=== PATIENT | male | born 1995 | race African-American/Black ===

== ENCOUNTER 2017-07-18 07:09 | Emergency (ER) | payer OTHER ==
[2017-07-18 07:29] VITALS: TEMP 98.7; BMI 17.4
--- NOTE | 2017-07-18 08:10 | PDOC ---
History of Present Illness - General Chief Complaint: Pain Stated Complaint: COUGHING BLOOD/PAIN UPPER ABDOMAN/SHORTNESS BREATH Time Seen by Provider: 07/18/17 07:57 History Source: Patient - History of Present Illness Initial Comments: 07/18/17 08:06 21 year old male with no reported PMH presents to our ED this morning c/o cough. Notes a 3-4 day h/o cough, however this morning he noted some bright red spots of blood prompting his visit to the ED. Endorses subjective fever, GRANT and "aching" chest pain denies nausea/vomiting, diarrhea/constipation. Also notes some intermittent shortness of breath with exertion. 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 NKDA Surgical: denies Social: denies nicotine, weekly marijuana, denies alcohol Past History - Past Medical History Allergies/Adverse Reactions: Allergies Allergy/AdvReac Type Severity Reaction Status Date / Time No Known Allergies Allergy Verified 07/18/17 07:25 Home Medications: Ambulatory Orders Azithromycin [Zithromax -] 500 mg PO DAILY 3 Days #3 tablet 07/18/17 COPD: No - Immunization History Immunization Up to Date: Yes - Suicide/Smoking/Psychosocial Hx Smoking Status: No Smoking History: Never smoked Have you smoked in the past 12 months: No Number of Cigarettes Smoked Daily: 0 Information on smoking cessation initiated: No Hx Alcohol Use: No Drug/Substance Use Hx: No Substance Use Type: None Review of Systems - Review of Systems Constitutional: Yes: Fever. No: Chills HEENTM: No: Recent change in vision Respiratory: Yes: Cough, Shortness of Breath, Hemoptysis Cardiac (ROS): No: Chest Pain, Lightheadedness, Palpitations, Syncope ABD/GI: No: Constipated, Diarrhea, Nausea, Vomiting : No: Burning, Dysuria *Physical Exam - Vital Signs Last Vital Signs Temp Pulse Resp BP Pulse Ox 98.7 F 86 18 111/62 98 07/18/17 07:26 07/18/17 07:26 07/18/17 07:26 07/18/17 07:26 07/18/17 07:26 - Physical Exam General Appearance: Yes: Nourished, Thin HEENT: positive: EOMI, DARIEL. negative: Pharyngeal Erythema, Tonsillar Exudate, Tonsillar Erythema Neck: positive: Trachea midline, Supple Respiratory/Chest: positive: Lungs Clear Cardiovascular: positive: S1, S2. negative: Edema, JVD Vascular Pulses: Dorsalis-Pedis (R): 2+, Doralis-Pedis (L): 2+ Gastrointestinal/Abdominal: positive: Normal Bowel Sounds, Soft Musculoskeletal: negative: CVA Tenderness (R), CVA Tenderness (L) Integumentary: positive: Normal Color, Dry, Warm Neurologic: positive: Fully Oriented, Alert ED Treatment Course - LABORATORY CBC & Chemistry Diagram: 07/18/17 08:50 07/18/17 08:50 Medical Decision Making - Medical Decision Making 07/18/17 08:38 21 year old well appearing male presents with cough and subjective fever and GRANT. Clinical suspicion for viral URI, Bronchitis, PNA. Low clinical suspicion for HOCM like picture as patient is active in physical activity without GRANT. 07/18/17 09:01 ECG shows NSR HR 61, no QT prolongation, no dagger Q waves (HOCM) no deviations , no KAMINI/STD/TWI - non ischemic ECG. CXR shows no cardiomegaly, no consolidation/infiltrate. Will discharge patient home with Z-pack and PMD follow-up. Patient and patient' s mother @ bedside counseled on return precautions and discharged home. At the time of discharge patient was ambulatory, improved and understood his discharge care. I discussed the physical exam findings, ancillary test results and final diagnoses with the patient. I answered all of the patient's questions. The patient was satisfied with the care received and felt comfortable with the discharge plan and treatment plan. The patient will return to the Emergency Department with any new, persistent or worsening symptoms. *DC/Admit/Observation/Transfer Diagnosis at time of Disposition: Cough - Discharge Dispostion Disposition: HOME Condition at time of disposition: Good Admit: No - Prescriptions Prescriptions: Azithromycin [Zithromax -] 500 mg PO DAILY 3 Days #3 tablet - Referrals Referrals: Armida Hale MD [Primary Care Provider] - - Patient Instructions Printed Discharge Instructions: How to Avoid a Cold or Flu Additional Instructions: A prescription has been called to your pharmacy. Please take the entire antibiotic course. Follow up with your primary care doctor in the next 2-3 days. Return to the Emergency Department for any new/worsening/concerning symptoms. - Post Discharge Activity Forms/Work/School Notes: Back to Work
--- NOTE | 2017-07-18 08:41 | PDOC ---
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 The patient was starting to developing greenish cough. No fevers, chills. States has been coughing frequently, and now has recently has had mild blood tinged cough. No TB risk factors. No travel. Does not know of any sick contacts. Reported some substernal chest discomfort with cough. - Physicial Exam PE: 07/18/17 09:18 GENERAL: Awake, alert, and fully oriented, in no acute distress. HEAD: No signs of trauma EYES: PERRLA, EOMI, sclera anicteric, conjunctiva clear ENT: Auricles normal inspection, hearing grossly normal, nares patent NECK: Normal ROM, supple LUNGS: Breath sounds equal, clear to auscultation bilaterally. No wheezes, and no crackles HEART: Regular rate and rhythm, normal S1 and S2, no murmurs, rubs or gallops ABDOMEN: Soft, nontender. No guarding, no rebound. No masses EXTREMITIES: Normal range of motion, no edema. No clubbing or cyanosis. No cords, erythema, or tenderness NEUROLOGICAL: Cranial nerves II through XII grossly intact. Normal speech SKIN: Warm, Dry, normal turgor, no rashes or lesions noted. - Medical Decision Making 07/18/17 09:18 Vital Signs Temp Pulse Resp BP Pulse Ox 98.7 F 86 18 111/62 98 07/18/17 07:26 07/18/17 07:26 07/18/17 07:26 07/18/17 07:26 07/18/17 07:26 21 year old well appearing gentle man p/w cough. I suspect the patient likely has bronchitis. No TB risk factors. Chest xray reviewed by me, pending official radiology read. No infiltrates. ECG reassuring. Will d/c with azithromycin to treat as bronchitis. Heart Score/ECG Review #1 ECG reviewed & interpreted by me at: 09:00 07/18/17 09:16 NSR 61 with short AK, J point elevations V4-V5, no std/tanisha, normal axis, normal intervals, QTC 360 msec
[2017-07-18 09:06] LABS: BASO % 0.5 % (0-2.0); EOS % 1.1 % (0-4.5); HEMATOCRIT 42.3 % (35.4-49); HEMOGLOBIN 14.6 GM/dL (11.7-16.9); LYMPH % 29.1 % (8-40); MCH 30.5 pg (25.7-33.7); MCHC 34.6 g/dl (32.0-35.9); MEAN CELL VOLUME 88.1 fl (80-96); MONO % 14.7 % (3.8-10.2); NEUT % 54.6 % (42.8-82.8); PLATELET COUNT 202 K/MM3 (134-434); RDW 12.7 % (11.9-15.9); WHITE BLOOD COUNT 4.9 K/mm3 (4.0-10.0)
[2017-07-18 09:35] LABS: ALK PHOS 67 U/L (45-117); ANION GAP 2 (8-16); BILIRUBIN,TOTAL 0.5 mg/dL (0.2-1.0); BLOOD UREA NITROGEN 10 mg/dL (7-18); CALCIUM 8.8 mg/dL (8.5-10.1); CHLORIDE 106 mmol/L (98-107); CO2 31 mmol/L (21-32); GLUCOSE,RANDOM 88 mg/dL (74-106); POTASSIUM 4.6 mmol/L (3.5-5.1); SGOT/AST 16 U/L (15-37); SGPT/ALT 12 U/L (12-78); SODIUM 139 mmol/L (136-145); TOT PROT 7.4 g/dl (6.4-8.2)
[2017-07-18 10:13] VITALS: BP 118/70; PULSE 72
--- NOTE | 2017-07-19 11:34 | EKG ---
Test Reason : Blood Pressure : / mmHG Vent. Rate : 061 BPM Atrial Rate : 061 BPM P-R Int : 106 ms QRS Dur : 088 ms QT Int : 358 ms P-R-T Axes : 069 078 070 degrees QTc Int : 360 ms SINUS RHYTHM WITH SINUS ARRHYTHMIA WITH SHORT ID EARLY REPOLARIZATION OTHERWISE NORMAL ECG NO PREVIOUS ECGS AVAILABLE Confirmed by FATUMA MARQUES MD ([id number]) on 07/19/2017 11:34:10 AM Referred By: Confirmed By:FATUMA MARQUES MD
== END 2017-07-18 10:13 | disposition home or self-care (01) ==
LOC: JER 07:09
DX: R05 Cough (principal)
CPT/HCPCS: 36415; 71046-TC-FY; 80053; 85025; 93005; 93010; 99284-25

== ENCOUNTER 2018-03-22 22:26 | Emergency (ER) | payer OTHER ==
--- NOTE | 2018-03-22 22:34 | PDOC ---
History of Present Illness - History of Present Illness Initial Comments: The patient is a 22 year old male, with no significant past medical history, who presents to the emergency department with left ankle pain and swelling around 9 pm tonight. Patient states that he stepped the wrong way and inverted his left ankle and states that it popped. Patient states he did not take any medication for the pain. He denies any recent fevers, chills, headache or dizziness. He denies any recent nausea, vomit, diarrhea or constipation. He denies any recent chest pain or shortness of breath. He denies any recent dysuria, frequency, urgency or hematuria. Allergies: NKA Past surgical history: None reported. Primary Care Physician: Armida Hale 03/22/18 22:44 <Lilia Troy - Last Filed: 03/22/18 22:44> <Dale Jeff - Last Filed: 03/23/18 02:39> - General Chief Complaint: Injury Stated Complaint: LT ANKLE SPRAIN Time Seen by Provider: 03/22/18 22:32 Past History <Lilia Troy - Last Filed: 03/22/18 22:44> - Past Medical History COPD: No - Immunization History Immunization Up to Date: Yes - Suicide/Smoking/Psychosocial Hx Smoking Status: No Smoking History: Never smoked Have you smoked in the past 12 months: No Number of Cigarettes Smoked Daily: 0 Hx Alcohol Use: No Drug/Substance Use Hx: No Substance Use Type: None <Dale Jeff - Last Filed: 03/23/18 02:39> - Past Medical History Allergies/Adverse Reactions: Allergies Allergy/AdvReac Type Severity Reaction Status Date / Time No Known Allergies Allergy Verified 07/18/17 07:25 Home Medications: Ambulatory Orders NK [No Known Home Medication] 03/22/18 Review of Systems - Review of Systems Comments:: Constitutional: no recent illness; no fever ENT: no sore throat Cardiovascular: no palpitations; no chest pain Pulmonary: no cough; no trouble breathing Gastrointestinal: No nausea; no vomiting; no diarrhea Genitourinary: No urinary problems; no hematuria Skin: No rash Lymph system: No swollen glands Musculoskeletal: +left ankle pain and swelling. Neurological: No weakness; No numbness; No Headache; no vertigo; no lightheadedness <Lilia Troy - Last Filed: 03/22/18 22:44> *Physical Exam - Physical Exam Comments: Vitals: Triage Vital signs reviewed General Appearance: no acute distress, well nourished well developed Extremities: Left ankle: swelling and tenderness over the lateral malleolus. Full range of motion to all extremities, no cyanosis or clubbing. Skin: Warm and dry, no rashes or lesions, no rash, no petechiae Neuro: AOX3; Cranial Nerves 2-12 grossly intact, Strength intact to all extremities, Sensation intact to all extremities. Psych: Normal mood, normal affect <Lilia Troy - Last Filed: 03/22/18 22:44> Procedures - Splinting Splint Location: Left: Ankle Pre-Proc Neuro Vasc Exam: normal Hand-Made Type: orthoglass Post-Proc Neuro Vasc Exam: normal <Dale Jeff - Last Filed: 03/23/18 02:39> Medical Decision Making - Medical Decision Making 03/22/18 23:08 Swelling to the lateral malleolus we'll x-ray patient did not want any pain medication On x-ray there is a very subtle lucency right at the tip of the distal fibula we 'll place in a U-shaped splint provided with crutches and have patient follow up with orthopedics Findings, the need for follow-up and strict return instructions discussed with patient. <Dale Jeff - Last Filed: 03/23/18 02:39> *DC/Admit/Observation/Transfer - Attestations Scribe Attestion: 03/22/18 22:43 Documentation prepared by Lilia Troy, acting as medical care administrator for Dale Jeff MD. <Lilia Troy - Last Filed: 03/22/18 22:44> - Discharge Dispostion Decision to Admit order: No <Dale Jeff - Last Filed: 03/23/18 02:39> Diagnosis at time of Disposition: Ankle fracture Qualifiers: Encounter type: initial encounter Fracture type: closed Laterality: left Qualified Code(s): S82.892A - Other fracture of left lower leg, initial encounter for closed fracture - Discharge Dispostion Disposition: HOME Condition at time of disposition: Stable - Referrals Referrals: Armida Hale MD [Primary Care Provider] - Jaylen Hernandez MD [Staff Physician] - - Patient Instructions Printed Discharge Instructions: How to Use Crutches, Ankle Fracture, How to Take Care of Your Splint Additional Instructions: Keep splint clean and dry. Do not put any weight on ankle. Use crutches at all times while ambulating. Ice affected ankle 20 minutes on 20 minutes off. Take [id number] Motrin as needed for pain. Follow-up with Dr. Hernandez orthopedics this week. Return to the emergency department for any concerns. - Post Discharge Activity Forms/Work/School Notes: Back to Work, Back to School
[2018-03-22 22:42] VITALS: BP 113/71; PULSE 80; TEMP 98.1; BMI 19.0
== END 2018-03-22 23:25 | disposition home or self-care (01) ==
LOC: FER 22:26
PROC: 2W3RX1Z Immobilization of Left Lower Leg using Splint (ICD-10-PCS; principal; 2018-03-22)
DX: S82.892A Other fracture of left lower leg, initial encounter for closed fracture (principal); X58.XXXA Exposure to other specified factors, initial encounter; Y93.89 Activity, other specified; Y92.89 Other specified places as the place of occurrence of the external cause
CPT/HCPCS: 73610-TC-LT-FY; 73630-TC-LT; 99282-25

== ENCOUNTER 2018-10-05 07:52 | Emergency (ER) | payer OTHER ==
[2018-10-05 08:00] VITALS: BP 105/57; PULSE 89; BMI 19.8
[2018-10-05] MEDS ORDERED: LIDOCAINE VISCOUS 2% ORAL/TOP 20 ML UNIT-DOSE CUP MM ONE (08:10)
[2018-10-05] MEDS ORDERED: IBUPROFEN 600 MG TABLET (FP) PO ONE ×2 (08:10→08:13)
[2018-10-05] MEDS ORDERED: LIDOCAINE VISCOUS 2% ORAL/TOP 20 ML UNIT-DOSE CUP ONE (08:16)
--- NOTE | 2018-10-05 08:45 | PDOC ---
History of Present Illness - General Chief Complaint: Cold Symptoms Stated Complaint: CHEST PAIN Time Seen by Provider: 10/05/18 08:04 History Source: Patient Exam Limitations: No Limitations - History of Present Illness Initial Comments: 10/05/18 08:20 22 y/o male presents to the ED with complaints of sore throat since yesterday now accompanied with intermittent nausea secondary to gagging, fever, chills and mild generalized myalgia. Patient states took nothing for the above and decided come to the ER today. Patient denies recent travel recent illness or recent sick contacts. Patient also denies medical history Timing/Duration: getting worse Severity: moderate Associated Symptoms: reports: fever/chills, nausea/vomiting (nausea) Past History - Travel Traveled outside of the country in the last 30 days: No Close contact w/someone who was outside of country & ill: No - Past Medical History Allergies/Adverse Reactions: Allergies Allergy/AdvReac Type Severity Reaction Status Date / Time No Known Allergies Allergy Verified 07/18/17 07:25 Home Medications: Ambulatory Orders NK [No Known Home Medication] 03/22/18 COPD: No - Immunization History Immunization Up to Date: Yes - Suicide/Smoking/Psychosocial Hx Smoking Status: No Smoking History: Never smoked Have you smoked in the past 12 months: No Number of Cigarettes Smoked Daily: 0 Hx Alcohol Use: No Drug/Substance Use Hx: No Substance Use Type: None Patient Lives Alone: No Lives with/in: parents Review of Systems - Review of Systems Able to Perform ROS?: No Constitutional: Yes: Weakness HEENTM: Yes: Symptoms Reported, Throat Pain, Difficulty Swallowing Respiratory: No: Symptoms reported Cardiac (ROS): No: Symptoms Reported ABD/GI: Yes: Poor Appetite, Poor Fluid Intake : No: Symptoms Reported Musculoskeletal: Yes: Muscle Pain Integumentary: No: Symptoms Reported Neurological: No: Symptoms reported Hematologic/Lymphatic: No: Symptoms Reported *Physical Exam - Vital Signs Last Vital Signs Temp Pulse Resp BP Pulse Ox 102.3 F H 89 20 105/57 L 98 10/05/18 07:57 10/05/18 07:57 10/05/18 07:57 10/05/18 07:57 10/05/18 07:57 - Physical Exam General Appearance: Yes: Nourished, Appropriately Dressed. No: Apparent Distress HEENT: positive: Pharynx Normal (Noted multiple herpangina to posterior soft palate and pharynx. Patient also noted with erythema to area. Uvula midline 2+ tonsils bilaterally) Neck: positive: Supple. negative: Lymphadenopathy (R), Lymphadenopathy (L) Respiratory/Chest: positive: Lungs Clear, Normal Breath Sounds. negative: Respiratory Distress, Accessory Muscle Use Cardiovascular: positive: Regular Rhythm, Regular Rate. negative: Murmur Gastrointestinal/Abdominal: positive: Soft. negative: Tenderness Integumentary: positive: Normal Color, Warm, Moist Neurologic: positive: Motor Strength 5/5 (ambulatory) ED Treatment Course - Medications Given in the ED: ED Medications Discontinued Medications Generic Name Dose Route Start Last Admin Trade Name Freq PRN Reason Stop Dose Admin Ibuprofen 600 mg 10/05/18 08:10 10/05/18 08:19 Motrin - PO 10/05/18 08:11 600 mg ONCE ONE Administration Lidocaine HCl 15 ml 10/05/18 08:10 10/05/18 08:19 Xylocaine 2% Viscous Oral - MM 10/05/18 08:11 15 ml ONCE ONE Administration Medical Decision Making - Medical Decision Making 10/05/18 08:07 Complaint: Sore throat now with fever and myalgia and nausea Exam: febrile, noted multiple herpangina to posterior pharynx along with erythema. Noted some bleeding after swabbing the throat for culture. Plan: Motrin rapid strep and lidocaine for symptomatic relief. 10/05/18 08:49 Laboratory Tests 10/05/18 08:00 Group A Strep Rapid Negative Patient will have repeat temperature taken and sent home with Magic mouthwash along with supportive care instructions *DC/Admit/Observation/Transfer Diagnosis at time of Disposition: Coxsackie virus infection - Discharge Dispostion Disposition: HOME Condition at time of disposition: Improved - Referrals Referrals: Armida Hale MD [Primary Care Provider] - - Patient Instructions Printed Discharge Instructions: Hand, Foot, and Mouth Disease Additional Instructions: Please take Motrin 600 mg every 8 hours for adequate fever control along with pain control. Eat soft non-abrasive foods and drink plenty of fluids. Use Magic mouthwash also to alleviate your discomfort. If symptoms do not improve please return to the ED or follow-up with your primary care physician - Post Discharge Activity
[2018-10-05] MEDS ORDERED: ACETAMINOPHEN 500 MG TABLET (FP) PO ONE (08:57)
[2018-10-05] MEDS ORDERED: ACETAMINOPHEN 325 MG TABLET (FP) ONE (08:58)
[2018-10-05 09:32] VITALS: TEMP 101
== END 2018-10-05 09:31 | disposition home or self-care (01) ==
LOC: JER 07:52
DX: B08.5 Enteroviral vesicular pharyngitis (principal); B97.11 Coxsackievirus as the cause of diseases classified elsewhere
CPT/HCPCS: 87070; 87880; 99282-25

== ENCOUNTER 2018-10-06 22:17 | Emergency (ER) | payer OTHER ==
[2018-10-06 22:26] VITALS: BMI 19.8
--- NOTE | 2018-10-06 23:13 | PDOC ---
History of Present Illness - General Chief Complaint: Sore Throat Stated Complaint: TROUBLE BREATHING Time Seen by Provider: 10/06/18 22:38 History Source: Patient - History of Present Illness Initial Comments: 10/06/18 23:20 22 year old male with sore throat and nausea x 4 days fever yesterday no fever today. patient unable to drink due to throat pain. denies fever today. took ibuprofen at 7 pm. seen in this ED 3 days ago rapid strep negative. No pmhx 10/06/18 23:25 Past History - Past Medical History Allergies/Adverse Reactions: Allergies Allergy/AdvReac Type Severity Reaction Status Date / Time No Known Allergies Allergy Verified 10/06/18 22:21 Home Medications: Ambulatory Orders Ibuprofen [Motrin -] 600 mg PO TID PRN #21 tablet 10/05/18 Mag Hydrox/Alh/Smc/Dpha/Lido [Magic Mouthwash *Sjr Formula* -] 10 ml MM Q6HPO PRN #1 bottle 10/05/18 COPD: No - Immunization History Immunization Up to Date: Yes - Suicide/Smoking/Psychosocial Hx Smoking Status: No Smoking History: Unknown if ever smoked Have you smoked in the past 12 months: No Number of Cigarettes Smoked Daily: 0 Information on smoking cessation initiated: No Hx Alcohol Use: No Drug/Substance Use Hx: No Substance Use Type: None Review of Systems - Review of Systems Able to Perform ROS?: Yes Is the patient limited [place] proficient: No Constitutional: Yes: Fever HEENTM: Yes: Throat Pain, Difficulty Swallowing Cardiac (ROS): No: Symptoms Reported, See HPI, Chest Pain, Edema, Irregular Heart Rate, Lightheadedness, Palpitations, Syncope, Chest Tightness, Other ABD/GI: No: Symptoms Reported, See HPI, Abdominal Distended, Abd. Pain w/ defecation, Blood Streaked Bowels, Constipated, Diarrhea, Difficulty Swallowing , Nausea, Poor Appetite, Poor Fluid Intake, Rectal Bleeding, Vomiting, Indigestion, Abdominal cramping, Tarry Stools, Other *Physical Exam - Vital Signs Last Vital Signs Temp Pulse Resp BP Pulse Ox 98.2 F 92 H 16 110/85 97 10/06/18 22:19 10/06/18 22:19 10/06/18 22:19 10/06/18 22:19 07/16/19 22:19 - Physical Exam General Appearance: Yes: Appropriately Dressed HEENT: positive: Pharyngeal Erythema (, tonsillar erythema and swelling no kissing tonsils. ) Neck: negative: Lymphadenopathy (R), Lymphadenopathy (L) Respiratory/Chest: positive: Lungs Clear, Normal Breath Sounds Cardiovascular: positive: Regular Rhythm, Regular Rate Gastrointestinal/Abdominal: positive: Normal Bowel Sounds, Soft Extremity: positive: Normal Capillary Refill, Normal Inspection, Normal Range of Motion Integumentary: positive: Normal Color, Dry, Warm Neurologic: positive: Fully Oriented, Alert, Normal Mood/Affect ED Treatment Course - LABORATORY CBC & Chemistry Diagram: 10/06/18 23:30 10/06/18 23:30 Medical Decision Making - Medical Decision Making viral pharyngitis P: IVF cbc bmp [facility] 10/07/18 02:03 tolerated PO water. and juice. patient is feeling better. will d.c home *DC/Admit/Observation/Transfer Diagnosis at time of Disposition: Viral pharyngitis - Discharge Dispostion Disposition: HOME - Referrals Referrals: Kentrell Salmon MD [Primary Care Provider] - - Patient Instructions Printed Discharge Instructions: Viral Pharyngitis Additional Instructions: drink plenty of fluids gargle with warm salty water take ibuprofen every 6 hours as needed for pain follow up with your doctor as soon as possible - Post Discharge Activity Forms/Work/School Notes: Back to Work
[2018-10-06] MEDS ORDERED: DEXAMETHASONE SOD PHOSPHATE 10 MG/1 ML VIAL IM ONE (23:17)
[2018-10-06] MEDS ORDERED: ONDANSETRON 4 MG/2 ML VIAL IVPB ONE (23:17)
[2018-10-06] MEDS ORDERED: SODIUM CHLORIDE 1,000 ML IV STA (23:18)
[2018-10-06] MEDS ORDERED: KETOROLAC TROMETHAMINE 30 MG/1 ML VIAL IVPUSH ONE (23:22)
[2018-10-06 23:47] LABS: BASO % 0.2 % (0-2.0); EOS % 0.1 % (0-4.5); HEMATOCRIT 39.2 % (35.4-49); HEMOGLOBIN 13.2 GM/dL (11.7-16.9); LYMPH % 6.6 % (8-40); MCH 30.4 pg (25.7-33.7); MCHC 33.6 g/dl (32.0-35.9); MEAN CELL VOLUME 90.2 fl (80-96); MEAN PLT VOLUME 8.6 fl (7.5-11.1); MONO % 9.2 % (3.8-10.2); NEUT % 83.9 % (42.8-82.8); PLATELET COUNT 191 K/MM3 (134-434); RBC 4.35 M/mm3 (4.00-5.60); RDW 12.9 % (11.9-15.9); WHITE BLOOD COUNT 11.3 K/mm3 (4.0-10.0)
[2018-10-06] MEDS ORDERED: KETOROLAC TROMETHAMINE 30 MG/1 ML VIAL ONE (23:50)
[2018-10-06] MEDS ORDERED: DEXAMETHASONE SOD PHOSPHATE 10 MG/1 ML VIAL ONE (23:50)
[2018-10-06] MEDS ORDERED: ONDANSETRON 4 MG/2 ML VIAL ONE (23:51)
[2018-10-07 00:09] LABS: BLOOD UREA NITROGEN 10.1 mg/dL (7-18); CALCIUM 8.6 mg/dL (8.5-10.1); CREATININE 0.9 mg/dL (0.55-1.3); POTASSIUM 4.2 mmol/L (3.5-5.1)
[2018-10-07 02:41] VITALS: BP 105/61; PULSE 75; TEMP 99
== END 2018-10-07 02:43 | disposition home or self-care (01) ==
LOC: JER 22:17
PROC: 3E0337Z Introduction of Electrolytic and Water Balance Substance into Peripheral Vein, Percutaneous Approach (ICD-10-PCS; principal; 2018-10-06)
PROC: 3E033GC Introduction of Other Therapeutic Substance into Peripheral Vein, Percutaneous Approach (ICD-10-PCS; 2018-10-06)
PROC: 3E0333Z Introduction of Anti-inflammatory into Peripheral Vein, Percutaneous Approach (ICD-10-PCS; 2018-10-06)
PROC: 3E0233Z Introduction of Anti-inflammatory into Muscle, Percutaneous Approach (ICD-10-PCS; 2018-10-06)
DX: J02.9 Acute pharyngitis, unspecified (principal); B97.89 Other viral agents as the cause of diseases classified elsewhere
CPT/HCPCS: 36415; 80048; 85025; 99284-25; J1100; J7030

== ENCOUNTER 2018-12-31 14:39 | Emergency (ER) | payer OTHER ==
[2018-12-31 14:46] VITALS: BP 125/80; PULSE 74; TEMP 98.2; BMI 19.0
--- NOTE | 2018-12-31 16:01 | PDOC ---
History of Present Illness - General Chief Complaint: Syncope/Near Syncope Stated Complaint: I WOKE UP ON THE FLOOR Time Seen by Provider: 12/31/18 16:00 - History of Present Illness Initial Comments: 12/31/18 17:25 Chief complaint: Fainting HPI: Patient was at work today, sweeping the floor, felt flushed and tingly all over, possible momentary loss of consciousness. No confusion or other symptoms upon awakening. No sign of injury Review of systems: reviewed and noncontributory Past medical history: No significant medical or surgical problems past or present, no hospitalizations. 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 Patient feels fine now on has no symptoms whatsoever. Afebrile, vital signs normal Head atraumatic. No contusions, hematomas, abrasions, or lacerations. PERRLA, 4 mm, and a benign with sharp disc margins, good central venous pulsations, no hemorrhages or exudates ENT clear Neck supple without bruit mass or nodes. No point tenderness or deformity. Full range of motion without pain Chest clear to P&A, full breath sounds bilaterally. No chest wall or rib cage tenderness or deformity CV S1-S2 normal without murmur rub or gallop pulses full and symmetric no JVD or edema no bruits Abdomen nondistended, bowel sounds normal. Soft without mass tenderness organomegaly Extremities no CCE. No visible or palpable signs of trauma Skin clear, no rash, adequate turgor and wet mucous membranes Neurological C2 to 12 intact. Strength: Symmetric. No focal sensorimotor deficits. Gait stable and unimpaired. Impression: This is most likely vasovagal syncope. EKG normal sinus rhythm, normal EKG Plan: Reassure. Return to ER if further symptoms. Neurologist referral if further symptoms. Fully ambulatory and in no pain or other distress at discharge, asymptomatic, to follow-up as directed Past History - Past Medical History Allergies/Adverse Reactions: Allergies Allergy/AdvReac Type Severity Reaction Status Date / Time No Known Allergies Allergy Verified 12/31/18 13:10 Home Medications: Ambulatory Orders Ibuprofen [Motrin -] 600 mg PO TID PRN #21 tablet 10/05/18 Mag Hydrox/Alh/Smc/Dpha/Lido [Magic Mouthwash *Sjr Formula* -] 10 ml MM Q6HPO PRN #1 bottle 10/05/18 COPD: No - Immunization History Immunization Up to Date: Yes - Psycho Social/Smoking Cessation Hx Smoking Status: No Smoking History: Current every day smoker Have you smoked in the past 12 months: No Number of Cigarettes Smoked Daily: 5 Information on smoking cessation initiated: Yes Hx Alcohol Use: Yes (RARE) Drug/Substance Use Hx: Yes (MARIJ WEEKENDS) Substance Use Type: None *Physical Exam - Vital Signs Last Vital Signs Temp Pulse Resp BP Pulse Ox 98.2 F 74 16 125/80 100 12/31/18 14:40 12/31/18 14:40 12/31/18 14:40 12/31/18 14:40 12/31/18 14:40 Discharge - Discharge Information Problems reviewed: Yes Clinical Impression/Diagnosis: Vasovagal near syncope Condition: Stable - Admission No - Follow up/Referral Referrals: Deon Wiley DO [Staff Physician] - - Patient Discharge Instructions Patient Printed Discharge Instructions: DI for Syncope in Adults (Fainting) - Post Discharge Activity Work/Back to School Note: Back to Work
--- NOTE | 2019-01-01 14:19 | EKG ---
Test Reason : Blood Pressure : / mmHG Vent. Rate : 063 BPM Atrial Rate : 063 BPM P-R Int : 120 ms QRS Dur : 080 ms QT Int : 384 ms P-R-T Axes : 090 078 076 degrees QTc Int : 392 ms NORMAL SINUS RHYTHM ST ELEVATION, CONSIDER EARLY REPOLARIZATION, PERICARDITIS, OR INJURY ABNORMAL ECG WHEN COMPARED WITH ECG OF 18-JUL-2017 08:59, NO SIGNIFICANT CHANGE WAS FOUND Confirmed by JAKY GUTIÉRREZ MD ([id number]) on 01/01/2019 2:18:38 PM Referred By: DR ESPARZA Confirmed By:JAKY GUTIÉRREZ MD
== END 2018-12-31 16:40 | disposition home or self-care (01) ==
LOC: FER 14:39
DX: R55 Syncope and collapse (principal)
CPT/HCPCS: 93005; 99282-25

== ENCOUNTER 2020-09-14 23:19 | Emergency (ER) | payer OTHER ==
[2020-09-14 23:26] VITALS: BP 118/76; PULSE 84; TEMP 98; BMI 19.1
[2020-09-14] MEDS ORDERED: PENICILLIN G BENZATHINE 2,400,000 UNIT/4 ML PFS IM ONE (23:54)
[2020-09-14] MEDS ORDERED: AZITHROMYCIN 500 MG TABLET PO ONE (23:55)
[2020-09-14] MEDS ORDERED: AZITHROMYCIN 500 MG TABLET ONE (23:59)
[2020-09-15] MEDS ORDERED: PENICILLIN G BENZATHINE 1,200,000 UNIT/2 ML PFS IM ONE ×2 (00:02)
== END 2020-09-15 00:15 | disposition home or self-care (01) ==
LOC: FER 23:19
DX: Z20.2 Contact with and (suspected) exposure to infections with a predominantly sexual mode of transmission (principal)
CPT/HCPCS: 36415; 81003; 86780; 87491; 87591; 99284-25

== ENCOUNTER 2020-12-27 17:36 | Emergency (ER) | payer OTHER ==
[2020-12-27 17:41] VITALS: BP 119/78; PULSE 78; TEMP 99.9; BMI 17.9
[2020-12-27] MEDS ORDERED: KETOROLAC TROMETHAMINE 60 MG/2 ML VIAL IM ONE (18:34)
[2020-12-27] MEDS ORDERED: KETOROLAC TROMETHAMINE 30 MG/1 ML VIAL ONE (18:35)
[2020-12-27 19:40] LABS: URINE APPEARANCE CLEAR; URINE BILIRUBIN NEGATIVE (NEGATIVE); URINE COLOR YELLOW; URINE GLUCOSE (UA) NEGATIVE (NEGATIVE); URINE KETONE TRACE (NEGATIVE); URINE LEUK ESTERASE NEGATIVE (NEGATIVE); URINE NITRITE NEGATIVE (NEGATIVE); URINE PROTEIN NEGATIVE (NEGATIVE)
== END 2020-12-27 20:07 | disposition left against medical advice (07) ==
LOC: MERGE 17:36 → JER 17:36
PROC: 3E0233Z Introduction of Anti-inflammatory into Muscle, Percutaneous Approach (ICD-10-PCS; principal; 2020-12-27)
DX: S90.32XA Contusion of left foot, initial encounter (principal); S30.1XXA Contusion of abdominal wall, initial encounter; V23.4XXA Motorcycle driver injured in collision with car, pick-up truck or van in traffic accident, initial encounter
CPT/HCPCS: 72170-TC-FY; 73502-TC-LT-FY; 73552-TC-LT-FY; 73564-TC-LT-FY; 73610-TC-LT-FY; 73630-TC-LT; 76604; 76705-TC; 81003; 93308; 99285-25

== ENCOUNTER 2021-01-09 09:48 | Emergency (ER) | payer OTHER ==
[2021-01-09] MEDS ORDERED: IBUPROFEN 400 MG TABLET (FP) PO ONE ×2 (09:59→10:07)
[2021-01-09] MEDS ORDERED: ACETAMINOPHEN 325 MG TABLET (FP) PO ONE (09:59)
[2021-01-09] MEDS ORDERED: ACETAMINOPHEN 325 MG TABLET (FP) ONE (10:07)
[2021-01-09 10:30] VITALS: BP 120/80; PULSE 70; TEMP 98.9; BMI 17.9
== END 2021-01-09 10:44 | disposition home or self-care (01) ==
LOC: FER 09:48
DX: S39.012A Strain of muscle, fascia and tendon of lower back, initial encounter (principal); V49.40XA Driver injured in collision with unspecified motor vehicles in traffic accident, initial encounter
CPT/HCPCS: 99283-25

== ENCOUNTER 2021-10-31 00:10 | Emergency (ER) | payer OTHER ==
[2021-10-31] MEDS ORDERED: ACETAMINOPHEN 325 MG TABLET (FP) PO ONE (00:14)
[2021-10-31 00:20] VITALS: BP 108/69; PULSE 77; RESP 16; TEMP 99; BMI 19.3
[2021-10-31] MEDS ORDERED: ACETAMINOPHEN 325 MG TABLET (FP) ONE (00:21)
== END 2021-10-31 00:31 | disposition home or self-care (01) ==
LOC: FER 00:10
DX: M79.10 Myalgia, unspecified site (principal)
CPT/HCPCS: 99283-25; C9803-CS; U0003; U0005

== ENCOUNTER 2022-11-22 16:22 | Emergency (ER) | payer OTHER ==
[2022-11-22 16:45] VITALS: BP 100/58; PULSE 108; RESP 15; BMI 21.6
[2022-11-22] MEDS ORDERED: IBUPROFEN 400 MG TABLET (FP) PO ONE ×2 (16:51→16:57)
[2022-11-22 18:14] VITALS: TEMP 99.3
== END 2022-11-22 18:38 | disposition home or self-care (01) ==
LOC: FER 16:22
DX: R50.9 Fever, unspecified (principal); J02.9 Acute pharyngitis, unspecified; M79.10 Myalgia, unspecified site; U07.1 COVID-19
CPT/HCPCS: 0241U-QW; 87651; 99283-25

== ENCOUNTER 2023-02-25 20:50 | Emergency (ER) | payer OTHER ==
[2023-02-25 21:04] VITALS: BP 120/81; PULSE 70; RESP 16; TEMP 98.2; BMI 20.3
[2023-02-25 23:46] LABS: THROAT:GRP A STREP NOT DETECTED (NOTDETECTED)
== END 2023-02-25 21:20 | disposition home or self-care (01) ==
LOC: FER 20:50
DX: J02.9 Acute pharyngitis, unspecified (principal); R51.9 Headache, unspecified; R50.9 Fever, unspecified; R53.81 Other malaise; R09.81 Nasal congestion; R05.9 Cough, unspecified; R11.2 Nausea with vomiting, unspecified; R10.9 Unspecified abdominal pain; H92.09 Otalgia, unspecified ear; R19.7 Diarrhea, unspecified; Z20.822 Contact with and (suspected) exposure to COVID-19
CPT/HCPCS: 0241U-QW; 87651; 99283-25